=== PATIENT | female | born 1945 | race Caucasian/White ===

== ENCOUNTER 2023-07-24 14:04 | Observation (INO) ==
--- NOTE | 2023-07-24 14:29 | History & Physical Report ---
Date of Service July 24, 2023 Assessment & Plan (1) Acute UTI: Plan: Ceftriaxone (due to current nausea) pending urine/blood culture Some of her suprapubic pain maybe cystitis and will start Pyridium to see if this is effective (2) Constipation: Plan: Already appears to be improving after starting Golytely MiraLAX 17g PO daily until no longer having hard stool Suspect this is the majority of her pain (3) Hypertension: Plan: Continue her usual losartan and amlodipine (4) Hyperlipidemia: Plan: Continue rosuvastatin (5) Hypothyroidism: Plan: Add TSH Continue levothyroxine (6) GERD (gastroesophageal reflux disease): Plan: Pantoprazole IV (unable to tolerate PO well with nausea) 40mg now then PO tomorrow Plan VTE Prophylaxis - Lovenox 40mg SQ daily Diet - clear liquids, advance as tolerated Disposition - observation to med/surg Admission and Anticipated Discharge Date Admission Date: July 24, 2023 History of Present Illness Chief Complaint: Abdominal pain Primary Care Provider: Rafaela Rico Jenna Nair is a 77-year-old female who presents back to the ER after discharge earlier today with intractable abdominal pain. Initial umbilicus and suprapubic abdominal pain started yesterday morning with associated urinary frequency and discomfort. Initially the pain was intermittent with intense cramping however starting last night it would not go away. She describes it as "like having a baby". She went to [facility] last night and was diagnosed with constipation and treated with magnesium citrate which caused more intense pain (severity 10/10) therefore she came to [facility] ER earlier today when she was diagnosed with fecal impaction in addition to UTI. She was treated with cefdinir and given Golytely prep to take at home. After taking the Golyteley her pain became so intense she decided to return to the ER on advice of her granddaughter (CRISTY Riveraen Makenna). Since arrival back to the ER she has had a bowel movement with hard stool and feels improvement with pain severity down to 4/10. No radiation of pain, no back pain or flank tenderness. Of note she was recently on a course of prednisone for back pain which correlates with T12 fracture on CT but is no longer having a problem with this. Home Medications Medication Instructions Recorded Confirmed Type amlodipine 2.5 mg tablet 2.5 mg PO QAM 07/24/23 07/24/23 History cefdinir 300 mg capsule 300 mg PO BID 5 days #10 caps 07/24/23 07/24/23 Rx citalopram 20 mg tablet 20 mg PO QAM 07/24/23 07/24/23 History levothyroxine 100 mcg tablet 100 mcg PO DAILYBB 07/24/23 07/24/23 History losartan 100 mg tablet 100 mg PO QAM 07/24/23 07/24/23 History omeprazole 40 mg capsule,delayed 40 mg PO QAM 07/24/23 07/24/23 History release rosuvastatin 5 mg tablet 5 mg PO HS 07/24/23 07/24/23 History tobramycin 0.3 %-dexamethasone 2 drp OPL BID 07/24/23 07/24/23 History 0.05 % eye drops,suspension (Tobradex ST) Past Med/Surg History Medical History (Updated 07/24/23 @ 14:54 by Amanuel Trinh MD) GERD (gastroesophageal reflux disease) History of thyroid cancer Hypothyroidism Hyperlipidemia Hypertension Surgical History (Updated 07/24/23 @ 14:54 by Amanuel Trinh MD) History of thyroidectomy Social History Smoking Status: Never smoker Preferred Language: German Feels Safe at Home: Yes Review of Systems Review of Systems: All systems reviewed & are unremarkable except as noted in HPI & below Physical Exam Constitutional: WD/WN, vitals as above Respiratory: normal respiratory effort, lungs clear to auscultation Cardiovascular: RRR, no murmur, no edema Gastrointestinal (Abdomen): Inspection/Auscultation: abdomen normal to inspection; abdomen not distended Percussion/Palpation: + abdomen tender (suprapubic) and abdomen soft; no guarding and abdomen not rigid Skin: no rashes, warm and dry Neurologic: moves all extremities and awake; not confused Psychiatric: A+Ox3, euthymic affect Genitourinary: no CVA tenderness Results & Data Results & Data Vital Signs (Past 12 Hours) Vital Signs Temp Pulse Resp BP Pulse Ox O2 Del Method 07/24/23 14:17 36.7 C 84 16 163/86 H 94 Room Air Diagnostic Findings CT SCAN OF THE ABDOMEN AND PELVIS WITH IV CONTRAST CLINICAL HISTORY: Generalized abdominal pain. COMPARISON STUDY: No priors. TECHNIQUE: Following the IV administration of 90 cc of Optiray 320, CT scan of the abdomen and pelvis is performed from the lung bases to the proximal femora. Images are reviewed in the axial, sagittal, and coronal planes. IV contrast was administered without complication. A dose lowering technique was utilized adhering to the principles of ALARA. CT DOSE: 1317.15 mGy.cm FINDINGS: Lung bases: The heart is enlarged and without pericardial effusion. There are scattered coronary artery calcifications. The lung bases are clear noting bibasilar scarring/atelectasis. A small hiatal hernia is noted. Liver: The contrast-enhanced liver is normal in size, contour, and attenuation. There is mild central intrahepatic biliary ductal dilatation. The hepatic veins and portal veins are patent. Gallbladder: Surgically absent noting clips in the gallbladder fossa. Spleen: Normal in size and attenuation. Pancreas: Unremarkable. Adrenal glands: Unremarkable. Kidneys: The contrast enhanced kidneys are normal in size and without hydronephrosis. The kidneys enhance symmetrically. Abdominal vasculature: The abdominal aorta is normal in course and caliber noting moderate atherosclerotic calcification. Bowel: There is moderate colonic fecal retention. Liquid stool is seen throughout the right colon. There is mild colonic wall thickening, greatest involving the descending colon and rectosigmoid with surrounding infiltration and trace fluid. The appearance is consistent with a nonspecific colitis. No bowel obstruction is seen. The appendix is not identified and reported surgically absent. Peritoneum: There is trace free fluid in the lower abdomen and pelvis. No intravaginal sac is identified. Lymphadenopathy: None. Pelvic viscera: The bladder is normal as visualized. The uterus is surgically absent. No adnexal lesion is seen. Skeletal structures: The skeletal structures are osteopenic. There is mild lumbosacral spondylosis. There is a an acute to subacute appearing superior end plate compression fracture of T11. There is only mild loss of height. No retropulsed fragments are seen. Paravertebral edema is noted. No lytic or blastic lesions are seen. IMPRESSION: 1. Acute to subacute superior endplate compression fracture of T11 with mild paravertebral edema. There is only mild loss of height. No significant retropulsion of fragments is seen. 2. There is evidence of a nonspecific colitis as above, with liquid stool throughout the right colon and significant fecal retention in the left colon. Correlate clinically. 3. Trace ascites. 4. Cardiomegaly. 5. Additional findings as above. ECG Rate (beats per minute): 65 Rhythm: normal sinus Findings: no acute ischemic change Comparison ECG Date: no prior available Code Status & VTE Plan Code Status Full PG Care Time/CCT Total # of Minutes Spent Total Time Spent with Patient: Total time spent is greater than 50% in coordination of care (as documented) at patient's floor/unit and/or counseling patient: Coding Level of Care Code 15837 INT INP/OBS CARE 2/55MIN Diagnoses Acute UTI N39.0 Constipation K59.00 Hypertension I10 Hyperlipidemia E78.5 Hypothyroidism E03.9 GERD (gastroesophageal reflux disease) K21.9
--- NOTE | 2023-07-24 14:32 | Emergency Department Note ---
Impression & Plan Abdominal pain ADMIT ED Provider Note HPI: History obtained from patient The patient is a 77-year-old female who was seen earlier this morning by myself for constipation and abdominal pain, return to the emergency department after attempting to use GoLytely at home to have a bowel movement only resulting in worsening abdominal pain and vomiting. On arrival here to the ED the patient is hemodynamically stable, she otherwise appears to be in no acute distress. ROS: - Per HPI Differential Diagnosis: Acute constipation with intractable abdominal pain, viral gastroenteritis, urinary tract infection, pyelonephritis, acute cholecystitis, acute appendicitis, small bowel obstruction, amongst other potential pathologies. *Outpatient medications and allergy history reviewed. PE: General: Alert HEENT: Normocephalic, trachea midline Eyes: Extraocular eye movement is intact, no scleral erythema Pulmonary: Clear to auscultation bilaterally, no wheezing Cardio: Regular rate and rhythm GI: Abdomen is soft to palpation, mild distention : No suprapubic tenderness MSK: No evidence of trauma or malformation of the extremities, no edema, no palpable tenderness over the midline thoracic spine or lumbar spine Skin: No evidence of rash Neuro: Alert, no focal deficits Psychiatric: Cooperative INDEPENDENT INTERPRETATIONS: employment training specialist: (As interpreted by myself): - An order was placed for continuous cardiac monitoring - Patient was noted to be in sinus rhythm with a rate of 85 Medical Decision Making: IV will be established, blood cultures drawn given that the patient has leukocytosis and urinary tract infection. I discussed the patient's presentation with the on-call hospitalist, Dr. Trinh, and previous imaging and lab work were reviewed from earlier this morning. Patient stated her preference for admission to the hospital at this time given her recurrent symptoms. Blood cultures were ordered, patient was placed for admission in stable condition for further care to the service of Dr. Trinh. Consultants/Discussions held with other healthcare providers: -Hospitalist, Dr. Trinh Disposition discussion held by myself with: -Patient and at bedside Diagnosis: 1. Abdominal pain, acute, intractable 2. Nausea and vomiting, acute Disposition: Admission Benton Diez DO Emergency Medicine Past Med/Surg History Social History Smoking Status: Never smoker Preferred Language: Kenyan Feels Safe at Home: Yes Home Meds Previous Rx's Medication Instructions Recorded cefdinir 300 mg capsule 300 mg PO BID 5 days #10 caps 07/24/23 Results & Data (ED) Vital Signs Vital Signs - 24 hr 07/24/23 14:17 Temperature 36.7 C Temperature Source Temporal Artery Scan Pulse Rate 84 Respiratory Rate 16 Respiratory Effort / Characteristics Non-Labored Spontaneous Respiratory Depth Normal Respiratory Pattern Regular Blood Pressure 163/86 H Blood Pressure Mean 111 Pulse Oximetry 94 Oxygen Delivery Method Room Air Sepsis Recent Fever Within 48 Hours No Sepsis New/Unexplained Change in Mental Status N/A Sepsis Action Taken by Nursing No Action Required Discharge Plan Visit Data Chief Complaint: Abdominal Pain Stated Complaint: ABDOMINAL PAIN, REFERRED BY MD ED Provider: Benton Diez Discharge Problem: Abdominal pain Forms Stand Alone Forms: [facility] Prescriptions Prescriptions: No Action cefdinir 300 mg capsule 300 mg PO BID 5 Days Qty: 10 0RF Referrals Referrals: Rafaela Rico M.D. [Primary Care Provider] - Discharge Problem: Abdominal pain Qualifiers: Abdominal location: generalized Qualified Code(s): R10.84 - Generalized abdominal pain
[2023-07-24] MEDS: PHENAZOPYRIDINE HCL 200 MG TAB PO STA (15:30)
[2023-07-24] MEDS: ONDANSETRON INJ 2 MG/ML 2 ML VIAL IV STA (15:30)
[2023-07-24] MEDS: ACETAMINOPHEN 1,000 MG/100 ML VIAL IV STA (15:30)
[2023-07-24] MEDS: PANTOprazole 40 MG in SYRINGE 0 ML IV STA (15:30)
[2023-07-24] MEDS: cefTRIAXone SODIUM 2,000 MG in DEXTROSE 5 % MINI-B 50 ML IV ONE (15:31)
[2023-07-24] MEDS: POLYETHYLENE (MIRALAX) 17 GM PACK PO SCH (18:06)
[2023-07-24] MEDS: ROSUVASTATIN CALCIUM 5 MG TAB PO SCH (20:17)
[2023-07-24] MEDS ORDERED: PHENAZOPYRIDINE HCL 200 MG TAB PO PRN (22:01)
[2023-07-24] MEDS ORDERED: ACETAMINOPHEN 325 MG TAB PO PRN (22:01)
[2023-07-24] MEDS ORDERED: ONDANSETRON INJ 2 MG/ML 2 ML VIAL IV PRN (22:02)
[2023-07-25] MEDS: LEVOTHYROXINE SODIUM 100 MCG TABLET PO SCH (05:53)
[2023-07-25] MEDS: LOSARTAN POTASSIUM 50 MG TAB PO SCH (08:09)
[2023-07-25] MEDS: amLODIPine BESYLATE 5 MG TAB PO SCH (08:09)
[2023-07-25] MEDS: PANTOprazole 40 MG TAB PO SCH (08:10)
[2023-07-25] MEDS: CITALOPRAM 20 MG TAB PO SCH (08:10)
--- NOTE | 2023-07-25 08:36 | Hospitalist Progress Note ---
Date of Service July 25, 2023 Assessment & Plan (1) Acute UTI: Plan: Ceftriaxone (due to current nausea) pending urine/blood culture Some of her suprapubic pain maybe cystitis and will start Pyridium to see if this is effective Ceftriaxone IV continued Blood cultures pending Urine cx w/ gram negative bacilli on preliminary, >100k CFU. WBC normalized, afebrile Tolerating advancement of diet to full liquid diet for this afternoon and can continue to advance as tolerated Antiemetics as needed See below regarding constipation New meds: appears has new rx in system sent for HCTZ-losartan combination 100mg- 12.5mg - see below, no longer on HCTZ and suspect had worsened her constipation/dehydration Monitor labs/exam on repeat, possible dc in AM if urine cx finalized and tolerating advancement of diet (2) Constipation: Plan: Was provided mag citrate by [facility], given golytley in ER Of note, patient reports she is supposed to be on miralax daily at baseline but is not always compliant with this prior c-scope ~7 yrs ago with [facility]OTOMAY[facility], Dr Michaels. ?benefit from f/u and discussion about linzess or other for IBS-C. TSH wnl on check CTAP AM 07/23 prior to dc from ER noting evidence of a nonspecific colitis as above, with liquid stool throughout the right colon and significant fecal retention in the left colon. Correlate clinically. ?viral/infectious, does have bugs going around but no definite sick contact Moving her bowels since, feeling better, tolerating advancement to full liquid diet Hyperactive BS on exam, checked KUB for completeness --> no obstruction or free air noted PCR/cdiff testing to be obtained as able with next BM, otherwise could continue daily miralax but will place on hold until obtained Recommend she have outpatient follow up with her prior GI provider for consideration further testing/repeat scope or possible start of medication for IBS-C, ?linzess Continue to monitor (3) Hypertension: Plan: Continue her usual losartan and amlodipine HCTZ not on home medication list but will need to inquire as did have recent rx, ?contributed to worsened constipation Patient reports she had been on this for about a month but without improvement in BP and was stopped. Suspect contributing to worsened constipation as no hx CHF/LE edema. Was switched to amlodipine 2.5mg for BP control and discussed can increase to 5mg as needed Also, did note cardiomegaly on CXR and CTAP does note coronary artery calcifications. No prior cardiac hx but likely would benefit from f/u outpatient for eval. Is on rosuvastatin 5mg HS daily but no baby aspirin or hx TIA/CVA/ND in past. (4) Hyperlipidemia: Plan: Continue rosuvastatin, can f/u PCP for repeat labs pending last screening for risk stratification given calcifications as above to consider increasing her dose (5) Hypothyroidism: Plan: Hx thyroid ca, on Synthroid 100mcg daily TSH wnl on check and continues on home dosing (6) GERD (gastroesophageal reflux disease): Plan: Pantoprazole IV on admission due to inability to tolerate PO, remains on 40mg PO daily (on omeprazole outpatient, does have small hiatal hernia on imaging) Plan VTE Prophylaxis - Lovenox 40mg SQ daily while inpatient Updated granddaughter Heather Mensah (JASMINE, used to work with inpatient hospitalist group) via phone this afternoon per ok by patient Dispo:possible dc in AM on oral abx with outpatient follow up if tolerating advancement of diet and urine cx final/stool studies resulted Admission and Anticipated Discharge Date Admission Date: July 24, 2023 Supervising Physician Co-Signing Physician Notes The patient was not seen by me. The chart was reviewed. Case discussed with CRISTY Nguyen. Agree with assessment and plan Subjective Eval this morning around 11:30, sitting up in bed. Reports feeling better. Did take prednisone for her back but no pain medications. Reports she did have HCTZ added to BP regimen but remained high and didn't work much for her. Discussed not taking for LE edema or CHF and likely not best and dehydration worsened w/ diuretic therapy and would hold off. She notes chronic issues w/ constipation and seen by Josh Michaels, to be on miralax daily but is not as faithful with this. Believes eats enough fiber. Was constipated and then improvement since having BM but liquid BMs since. No sick contacts that she knows of with diarrheal illness but did note a lot of bugs going around. RN to check stool/cdiff next go. Reports had c-scope ~7 years ago. NO abnormality. Discussed could benefit from fiber but ensure enough fluids. Does have hyperactive BS, will monitor stool studies/cdiff. Consideration to increase her amlodipine as needed for BP but wouldn't go about 5 as 10 can sometimes worsen constipation. Discussed monitoring advancement of diet and urine cx to ensure no resistance. She did report she was given magnesium citrate by [facility]. Would avoid further. Granddaughter Heather, I know, and alerted patient that can message/reach out for discussion regarding plan or for any questions/concerns. Physical Exam Physical Exam: General: 77yo female, looks younger than stated age, sitting up in bed, NAD ( at bedside on recheck) HEENT: head atraumatic, normocephalic, mmm, trachea midline Resp: even/unlabored, no w/c/r, on room air CV: RRR, no significant m/r/g, no pitting edema/calf tenderness, pulses palpable GI: +BS throughout, hyperactive, +slight distension but soft, +suprapubic tenderness/cramping (reported improved from admission) MSK/Neuro: nonfocal, answering questions appropriately, not confused, no facial droop/slurred speech Psych: AOx3, cooperative and pleasant Results & Data Results & Data Vital Signs (Past 12 Hours) Vital Signs Temp Pulse Resp BP Pulse Ox O2 Del Method 07/25/23 06:58 36.7 C 65 16 164/78 H 95 Room Air Laboratory Results 07/25/23 07/24/23 07/24/23 Range/Units 08:45 15:34 14:35 WBC 10.44 (4.8-10.8) K/ul RBC 4.27 (4.20-5.40) M/uL Hgb 13.0 (12.0-16.0) g/dl Hct 38.8 (37.0-47.0) % MCV 90.9 (80.0-100.0) fL MCH 30.4 (25.0-34.0) pg MCHC 33.5 (32.0-36.0) g/dL RDW Std Deviation 43.5 (36.4-46.3) fL RDW Coeff of Eder 13.2 (11.5-14.5) % Plt Count 217 (130-400) K/uL MPV 9.8 (9.4-12.4) fL Immature Gran % (Auto) 0.5 % Neut % (Auto) 70.4 % Lymph % (Auto) 14.8 % [place] % (Auto) 9.3 % Eos % (Auto) 4.6 % Baso % (Auto) 0.4 % Neut # (Auto) 7.36 H (1.40-6.50) K/uL Lymph # (Auto) 1.54 (1.20-3.40) K/uL [place] # (Auto) 0.97 H (0.11-0.59) K/uL Eos # (Auto) 0.48 (0.00-0.50) K/uL Baso # (Auto) 0.04 (0.00-0.20) K/uL Immature Gran # (Auto) 0.05 (0.01-0.20) K/uL Sodium 136 (136-145) mmol/L Potassium 3.8 (3.5-5.1) mmol/L Chloride 101 (98-107) mmol/L Carbon Dioxide 31 (21-32) mmol/L Anion Gap 4 (3-11) BUN 9 (6-23) mg/dl Creatinine 0.69 (0.6-1.2) mg/dl Est Cr Clr Drug Dosing 72.5 ml/min Est GFR ( Amer) 98.7 ml/min Est GFR (Non-Af Amer) 85.2 ml/min BUN/Creatinine Ratio 13.0 (10-20) Glucose 131 H (70-99(Fasting)) mg/dl Calcium 8.6 (8.6-10.3) mg/dl Magnesium 2.1 (1.7-2.4) mg/dl Total Bilirubin 0.8 (0.2-1.0) mg/dl AST 38 (13-39) U/L ALT 50 (7-52) U/L Alkaline Phosphatase 83 (34-104) U/L Total Protein 6.4 (6.0-8.3) gm/dl Albumin 3.9 (3.4-5.0) gm/dl Globulin 2.5 (2.5-4.0) gm/dl Albumin/Globulin Ratio 1.6 (0.9-2) 25-OH Vitamin D Total 36.6 (30-100) ng/ml Procalcitonin < 0.02 (0-0.5) ng/ml TSH 0.851 (0.300-4.500) uIu/ml Diagnostic Findings PRIOR TO ADMISSION 07/24/[address] SCAN OF THE ABDOMEN AND PELVIS WITH IV CONTRAST CLINICAL HISTORY: Generalized abdominal pain. COMPARISON STUDY: No priors. TECHNIQUE: Following the IV administration of 90 cc of Optiray 320, CT scan of the abdomen and pelvis is performed from the lung bases to the proximal femora. Images are reviewed in the axial, sagittal, and coronal planes. IV contrast was administered without complication. A dose lowering technique was utilized adhering to the principles of ALARA. CT DOSE: 1317.15 mGy.cm FINDINGS: Lung bases: The heart is enlarged and without pericardial effusion. There are scattered coronary artery calcifications. The lung bases are clear noting bibasilar scarring/atelectasis. A small hiatal hernia is noted. Liver: The contrast-enhanced liver is normal in size, contour, and attenuation. There is mild central intrahepatic biliary ductal dilatation. The hepatic veins and portal veins are patent. Gallbladder: Surgically absent noting clips in the gallbladder fossa. Spleen: Normal in size and attenuation. Pancreas: Unremarkable. Adrenal glands: Unremarkable. Kidneys: The contrast enhanced kidneys are normal in size and without hydronephrosis. The kidneys enhance symmetrically. Abdominal vasculature: The abdominal aorta is normal in course and caliber noting moderate atherosclerotic calcification. Bowel: There is moderate colonic fecal retention. Liquid stool is seen throughout the right colon. There is mild colonic wall thickening, greatest involving the descending colon and rectosigmoid with surrounding infiltration and trace fluid. The appearance is consistent with a nonspecific colitis. No bowel obstruction is seen. The appendix is not identified and reported surgically absent. Peritoneum: There is trace free fluid in the lower abdomen and pelvis. No intravaginal sac is identified. Lymphadenopathy: None. Pelvic viscera: The bladder is normal as visualized. The uterus is surgically absent. No adnexal lesion is seen. Skeletal structures: The skeletal structures are osteopenic. There is mild lumbosacral spondylosis. There is a an acute to subacute appearing superior end plate compression fracture of T11. There is only mild loss of height. No retropulsed fragments are seen. Paravertebral edema is noted. No lytic or blastic lesions are seen. IMPRESSION: 1. Acute to subacute superior endplate compression fracture of T11 with mild paravertebral edema. There is only mild loss of height. No significant retropulsion of fragments is seen. 2. There is evidence of a nonspecific colitis as above, with liquid stool throughout the right colon and significant fecal retention in the left colon. Correlate clinically. 3. Trace ascites. 4. Cardiomegaly. 5. Additional findings as above. ACT 112: Negative or not required by law. KUB X-Ray 07/25/23 11:52 KUB CLINICAL HISTORY: hyperactive BS COMPARISON STUDY: CT of the abdomen and pelvis July 24, 2023. FINDINGS: Cholecystectomy clips are incidentally noted. The bowel gas pattern is normal. The amount of stool is within normal limits. No urinary calculi are identified by radiography. Left pelvic calcifications represent phleboliths. IMPRESSION: No evidence for a bowel obstruction. ACT 112: Negative or not required by law. Electronically signed by: Tai Espinoza M.D. 07/25/2023 12:31 PM PG Care Time/CCT Total # of Minutes Spent Total Time Spent with Patient: Total time spent is greater than 50% in coordination of care (as documented) at patient's floor/unit and/or counseling patient: Coding Level of Care Code 79045 SUB INP/OBS CARE 3/50MIN Diagnoses Acute UTI N39.0 Constipation K59.00 Hypertension I10 Hyperlipidemia E78.5 Hypothyroidism E03.9 GERD (gastroesophageal reflux disease) K21.9
[2023-07-25 08:59] LABS: Basophils # (auto) 0.04 K/uL (0.00-0.20); Basophils % (auto) 0.4 %; Eosinophils # (auto) 0.48 K/uL (0.00-0.50); Eosinophils % (auto) 4.6 %; Hematocrit (blood only) 38.8 % (37.0-47.0); Immature Granulocytes # (auto) 0.05 K/uL (0.01-0.20); Immature Granulocytes % (auto) 0.5 %; Lymphocytes # (auto) 1.54 K/uL (1.20-3.40); Lymphocytes % (auto) 14.8 %; Mean Corpuscular Hemoglobin 30.4 pg (25.0-34.0); Mean Corpuscular Hgb Conc 33.5 g/dL (32.0-36.0); Mean Corpuscular Volume 90.9 fL (80.0-100.0); Mean Platelet Volume 9.8 fL (9.4-12.4); Monocytes # (auto) 0.97 K/uL (0.11-0.59); Monocytes % (auto) 9.3 %; Neutrophils # (auto) 7.36 K/uL (1.40-6.50); Neutrophils % (auto) 70.4 %; Platelet Count 217 K/uL (130-400); RDW Coefficient of Variation 13.2 % (11.5-14.5); RDW Standard Deviation 43.5 fL (36.4-46.3); Red Blood Count 4.27 M/uL (4.20-5.40); White Blood Count 10.44 K/ul (4.8-10.8)
[2023-07-25 09:16] LABS: Albumin Globulin Ratio 1.6 (0.9-2); Albumin Level 3.9 gm/dl (3.4-5.0); Bilirubin,Total 0.8 mg/dl (0.2-1.0); Calcium 8.6 mg/dl (8.6-10.3); Creatinine Clr Calc Pharmacy 72.5 ml/min; Est GFR (African American) 98.7 ml/min; Est GFR (Non-African American) 85.2 ml/min; Globulin 2.5 gm/dl (2.5-4.0); Magnesium 2.1 mg/dl (1.7-2.4); Potassium 3.8 mmol/L (3.5-5.1); Total Protein 6.4 gm/dl (6.0-8.3)
--- NOTE | 2023-07-25 12:32 | XRay Report ---
KUB CLINICAL HISTORY: hyperactive BS COMPARISON STUDY: CT of the abdomen and pelvis July 24, 2023. FINDINGS: Cholecystectomy clips are incidentally noted. The bowel gas pattern is normal. The amount o f stool is within normal limits. No urinary calculi are identified by radiography. Left pelvic calcif ications represent phleboliths. IMPRESSION: No evidence for a bowel obstruction. ACT 112: Negative or not required by law. Electronically signed by: Tai Espinoza M.D. 07/25/2023 12:31 PM
[2023-07-25 15:12] LABS: Adenovirus F 40/41 PCR Not Detected (NotDetected); Astrovirus PCR Not Detected (NotDetected); Campylobacter PCR Not Detected (NotDetected); Cryptosporidium PCR Not Detected (NotDetected); Cyclospora cayetanensis PCR Not Detected (NotDetected); Entamoeba histolytica PCR Not Detected (NotDetected); Enteroaggregative E.coli(EAEC) Not Detected (NotDetected); Enteropathogenic E.coli (EPEC) Not Detected (NotDetected); Enterotoxigenic E.coli (ETEC) Not Detected (NotDetected); Giardia lamblia PCR Not Detected (NotDetected); Norovirus GI/GII PCR Not Detected (NotDetected); Plesiomonas shigelloides PCR Not Detected (NotDetected); Rotavirus A PCR Not Detected (NotDetected); Salmonella PCR Not Detected (NotDetected); Sapovirus PCR Not Detected (NotDetected); Shiga-like Toxin E.coli (STEC) Not Detected (NotDetected); Shigella/Enteroinvasive E.coli Not Detected (NotDetected); Vibrio cholerae PCR Not Detected (NotDetected); Vibrio species PCR Not Detected (NotDetected); Yersinia enterocolitica PCR Not Detected (NotDetected)
[2023-07-25] MEDS: cefTRIAXone SODIUM 2,000 MG in DEXTROSE 5 % MINI-B 50 ML IV SCH (15:49)
--- NOTE | 2023-07-26 06:02 | Electrocardiogram Report ---
Test Reason : Blood Pressure : / mmHG Vent. Rate : 066 BPM Atrial Rate : 066 BPM P-R Int : 144 ms QRS Dur : 078 ms QT Int : 430 ms P-R-T Axes : 027 -27 -35 degrees QTc Int : 450 ms Normal sinus rhythm Minimal voltage criteria for LVH, may be normal variant Cannot rule out Anterior infarct , age undetermined Abnormal ECG When compared with ECG of 24-JUL-2023 08:50, (unconfirmed) No significant change was found Confirmed by Humza Persaud ([id number]) on 07/26/2023 6:01:33 AM Referred By: REFERRED SELF Confirmed By:Humza Persaud
[2023-07-26 06:33] LABS: Basophils # (auto) 0.04 K/uL (0.00-0.20); Basophils % (auto) 0.6 %; Eosinophils # (auto) 0.59 K/uL (0.00-0.50); Eosinophils % (auto) 8.1 %; Hematocrit (blood only) 37.4 % (37.0-47.0); Hemoglobin 12.6 g/dl (12.0-16.0); Immature Granulocytes # (auto) 0.02 K/uL (0.01-0.20); Immature Granulocytes % (auto) 0.3 %; Lymphocytes # (auto) 1.81 K/uL (1.20-3.40); Lymphocytes % (auto) 24.9 %; Mean Corpuscular Hemoglobin 30.6 pg (25.0-34.0); Mean Corpuscular Hgb Conc 33.7 g/dL (32.0-36.0); Mean Corpuscular Volume 90.8 fL (80.0-100.0); Mean Platelet Volume 10.1 fL (9.4-12.4); Monocytes # (auto) 0.78 K/uL (0.11-0.59); Monocytes % (auto) 10.7 %; Neutrophils # (auto) 4.03 K/uL (1.40-6.50); Neutrophils % (auto) 55.4 %; Platelet Count 213 K/uL (130-400); RDW Coefficient of Variation 12.8 % (11.5-14.5); Red Blood Count 4.12 M/uL (4.20-5.40); White Blood Count 7.27 K/ul (4.8-10.8)
[2023-07-26 07:11] LABS: Albumin Globulin Ratio 1.6 (0.9-2); Albumin Level 3.7 gm/dl (3.4-5.0); BUN Creatinine Ratio 15.5 (10-20); Bilirubin,Total 0.6 mg/dl (0.2-1.0); Calcium 8.7 mg/dl (8.6-10.3); Creatinine Clr Calc Pharmacy 70.4 ml/min; Est GFR (African American) 96.6 ml/min; Est GFR (Non-African American) 83.3 ml/min; Globulin 2.3 gm/dl (2.5-4.0); Magnesium 1.8 mg/dl (1.7-2.4); Potassium 3.7 mmol/L (3.5-5.1)
[2023-07-26 07:26] LABS: T4 Free Thyroxine 0.99 ng/dl (0.61-1.60)
[2023-07-26 07:49] LABS: Estimated Average Glucose 126 mg/dl
[2023-07-26] MEDS: ENOXAPARIN INJ 40 MG/0.4 ML SYR SQ SCH (07:59)
--- NOTE | 2023-07-26 08:42 | Discharge Summary ---
Date of Service July 26, 2023 Admission HPI Per Admitting Provider Jenna Nair is a 77-year-old female who presents back to the ER after discharge earlier today with intractable abdominal pain. Initial umbilicus and suprapubic abdominal pain started yesterday morning with associated urinary frequency and discomfort. Initially the pain was intermittent with intense cramping however starting last night it would not go away. She describes it as "like having a baby". She went to [facility] ER last night and was diagnosed with constipation and treated with magnesium citrate which caused more intense pain (severity 10/10) therefore she came to [facility] ER earlier today when she was diagno sed with fecal impaction in addition to UTI. She was treated with cefdinir and given Golytely prep to take at home. After taking the Golyteley her pain became so intense she decided to return to the ER on advice of her granddaughter (CRISTY Mensah). Since arrival back to the ER she has had a bowel movement with hard stool and feels improvement with pain severity down to 4/10. No radiation of pain, no back pain or flank tenderness. Of note she was recently on a course of prednisone for back pain which correlates with T12 fracture on CT but is no longer having a problem with this. Admission Exam Per Admitting Provider Constitutional: WD/WN, vitals as above Respiratory: normal respiratory effort, lungs clear to auscultation Cardiovascular: RRR, no murmur, no edema Gastrointestinal (Abdomen): Inspection/Auscultation: abdomen normal to inspection; abdomen not distended Percussion/Palpation: + abdomen tender (suprapubic) and abdomen soft; no guarding and abdomen not rigid Skin: no rashes, warm and dry Neurologic: moves all extremities and awake; not confused Psychiatric: A+Ox3, euthymic affect Genitourinary: no CVA tenderness Principal Diagnosis UTI, Constipation, nausea/vomiting Discharge Exam General: 77yo female, looks younger than stated age, sitting up in bed, NAD , ready to go home HEENT: head atraumatic, normocephalic, mmm, trachea midline Resp: even/unlabored, no w/c/r, on room air CV: RRR, no significant m/r/g, no pitting edema/calf tenderness, pulses palpable GI: +BS throughout, soft, less distension, no overt tenderness, no guarding/rigidity MSK/Neuro: nonfocal, answering questions appropriately, not confused, no facial droop/slurred speech +tenderness in region of her thoracic compression fracture Psych: AOx3, cooperative and pleasant Discharge Data Allergies Allergy/AdvReac Type Severity Reaction Status Date / Time Penicillins Allergy Rash Verified 07/24/23 17:24 Sulfa (Sulfonamide Allergy Rash Verified 07/24/23 17:24 Antibiotics) Ordered Studies KUB X-Ray 07/25/23 11:52 KUB CLINICAL HISTORY: hyperactive BS COMPARISON STUDY: CT of the abdomen and pelvis July 24, 2023. FINDINGS: Cholecystectomy clips are incidentally noted. The bowel gas pattern is normal. The amount of stool is within normal limits. No urinary calculi are identified by radiography. Left pelvic calcifications represent phleboliths. IMPRESSION: No evidence for a bowel obstruction. ACT 112: Negative or not required by law. Electronically signed by: Tai Espinoza M.D. 07/25/2023 12:31 PM Hospital Course (1) Acute UTI: 77yo female with PMHx significant for chronic constipation, hypothyroidism, HTN, HLD, pre-DM presented in setting of recent T12 compression fracture after being seen in [facility] and discharged for constipation with magnesium citrate with ongoing pain and presented to ER and discharged on Cefdnir and golytely before returning unable to tolerate oral intake with ongoing pain requiring admission. To be on miralax daily at baseline but not always compliant as reported by patient. Suspect pain w fracture worsened constipation and likely contributed to her developing UTI. Also had recent rx for HCTZ but without prior hx CHF or LE swelling and reported did NOT help her blood pressure. Blood cultures obtained and placed on IV ceftriaxone for urinary coverage. Urine culture finalized w/ ecoli, pansensitive. Improvement in sx w/ IV abx and discharged to complete prior rx cefdinir. Tolerated advancement of diet and moving bowels as below -- see plan regarding constipation. WBC normalized, remained afebrile Monitor labs/exam on repeat, possible dc in AM if urine cx finalized and tolerating advancement of diet Re thoracic compression fracture, rec to utilize OTC lidocaine patch/heat. No excessive lifting/bending. Declined orthotics consult for brace. Vit D wnl. ?DEXA w/ PCP, consider bisphosphonates therapy (2) Constipation: Was provided mag citrate by [facility], given golytley in ER Of note, patient reports she is supposed to be on miralax daily at baseline but is not always compliant with this - prior c-scope ~7 yrs ago with [facility], Dr Michaels. ?benefit from f/u and discussion about linzess or other for IBS-C. TSH wnl on check CTAP AM 07/23 prior to dc from ER noting evidence of a nonspecific colitis as above, with liquid stool throughout the right colon and significant fecal retention in the left colon. Correlate clinically. Hyperactive BS on exam 07/24, KUB obtained which was negative for obstruction/free air. Suspect increased BS from prior mag citrate/golytely Stool biofire NEGATIVE, negative cdiff Discussed with patient and recommended continuing miralax daily for stimulant, colace to help soften but also to follow up discussions w/ Dr Michaels about consideration for Linzess vs mogerity for IBS-C type as appears. Also consideration increase fiber but can discuss w/ GI in follow up. (3) Hypertension: Slightly elevated in setting of pain however did have recent rx HCTZ by PCP which did NOT help per patien and suspect worsened dehydration/constipation as above Would avoid diuretics in f/u PCP given chronic constipation issues Continued losartan, amlodipine however INCREASED her amlodipine to 5mg daily for better BP control and to monitor at home. EKG did note LVH. NO CP or cardiac hx. Did note coronary artery calcifications on imaging in system and is on crestor 5mg (suspect for protection given her pre-DM, A1c 6.0 on check, unable to dwayne metformin prior given rx in system) Rec f/u discussions with PCP about outpt cardiology referral or stress testing in f/u. not on aspirin at baseline, no hx VA/CVA. Trop neg on ER visit AM 07/23 Further titrations for BP meds as needed outpatient based on repeat readings (4) Hyperlipidemia: Continued rosuvastatin, can f/u PCP for repeat labs pending last screening for risk stratification given calcifications as above to consider increasing her dose if needed given calcifications as above (5) Hypothyroidism: Hx thyroid ca, on Synthroid 100mcg daily TSH wnl on check and continued on home dosing (6) GERD (gastroesophageal reflux disease): Pantoprazole IV on admission due to inability to tolerate PO but continued PO daily thereafter. Does have small hiatal hernia on imaging Continue home omeprazole at mt. Cdiff testing negative on check given CTAP appearance/abdominal discomfort however likely from her constipation. LFTs wnl F/u [facility] recommended as above Plan VTE Prophylaxis - Lovenox 40mg SQ daily while inpatient Discharged home in stable condition and tolerating regular diet. To complete course PO abx for UTI and continue bowel regimen/GI outpatient follow up Total Time Total Time Spent Total Time Spent (In Minutes): 60 Discharge Plan Discharge Items Patient Disposition: Home - Self-Care Reason For Visit: UTI, INTRACTABLE ABDOMINAL PAIN Discharge Diagnosis: Urinary Tract Infection, Constipation, Nausea Goals: You have been hospitalized for an acute medical problem. During your stay at [facility], we have made an effort to correct the problem that brought you to the hospital while keeping you as comfortable as possible. Medications were used to bring your condition under control and your discharge instructions will include directions for any medications you should take after leaving the hospital. Please make sure you see your Primary Care Provider as part of your follow up plan. Activity: Resume your previous activity Non-emergency contact: Primary Care Provider and Family Centered Specialist Call non-emergency contact if: you have any medication questions, your symptoms worsen, your pain is concerning for you and you have a fever Follow-up/Referrals: Manpreet Michaels MD [Outside Practitioners] - Rafaela Rico M.D. [Primary Care Provider] - 07/28/23 12:30 pm Diet: Heart Healthy Addtl Attending Provider Instructions: You have been hospitalized for constipation as well as abdominal pain and urinary tract infection. You were treated with IV antibiotics (Ceftriaxone) and urine culture showed ecoli which was pansensitive (no resistance) and you can complete the course of cefdinir as prescribed in the ER. Your white count has returned to normal and you have remained without a fever. Your blood cultures have been negative to date. Please continue to stay well hydrated and continue miralax daily in the meantime as well as consideration for fiber/metamucil to help bulk stools however I would like you to have follow up with your previous gastroenterology provider to discuss consideration for repeat colonoscopy and/or consideration for Linzess as I suspect you may have irritable bowel/constipation type and may benefit from trial of this medication. Your stool studies were negative on biofire testing as well as for cdiff and this may be again related to constipation. Please continue to stay hydrated as well to prevent constipation. You can continue COLACE as discussed to help keep your stools soft and prevent hardening/worsened constipation. You did have some coronary artery calcifications noted on your cat scan imaging and although you do not have a cardiac history, it may be worthwhile to discuss with your primary care about referral to cardiology as an outpatient to consider possible stress testing. Your troponin was not elevated on arrival to the ER or reports of chest pain, however you do have a slightly enlarged heart on chest xray and this may be worth further discussion/evaluation. EKG did show some findings that are likely from longstanding blood pressure elevations and I would recommend you continue to monitor your pressures at home and if remaining elevated, and we have increased your amlodipine to 5mg daily. Your A1c was 6.0 and pre-diabetic, please follow up with primary care. I doubt you have gastroparesis but can have slowed GI time with diabetes and this can be discussed in follow up as well. Your thyroid level was normal, as checked due to issues with constipation if undertreated. For your back, I suspect the fracture/pain contributed to your constipation. Vitamin D level was normal. I would recommend discussing with primary care about a brace for comfort but can use lidocaine patch/heat in the meantime for pain as needed. Avoid excessive bending/lifting over 10 pounds in the meantime. If you have ongoing pain you may benefit from referral to orthopedic spine. Please follow up with primary care in the next 7-10 days to monitor your progress. Please return to the ER with any fever/chills, increased abdominal pain, nausea/vomiting/inability to tolerate oral intake/keep up with hydration, chest pain/shortness of breath or for any other symptoms concerning for you. It has been a pleasure being a part of the medical team providing for you while you have been in the hospital. Take care! Pending Studies at Discharge: Yes Studies:: Blood cultures -- no growth to date Stand-Alone Forms: My [employer], Smoking Cessation Medications and DC Order Prescriptions: New amlodipine [Norvasc] 5 mg Tablet 5 mg PO QAM Qty: 30 0RF Continued cefdinir 300 mg capsule 300 mg PO BID 5 Days Qty: 10 0RF omeprazole 40 mg capsule,delayed release(DR/EC) 40 mg PO QAM levothyroxine 100 mcg tablet 100 mcg PO DAILYBB citalopram 20 mg tablet 20 mg PO QAM losartan 100 mg tablet 100 mg PO QAM rosuvastatin 5 mg tablet 5 mg PO HS Tob[address]x ST 0.3-0.05 % drops,suspension 2 drp OPL BID Rx Instructions: Has 8 days left of regimen. Discontinued amlodipine 2.5 mg tablet 2.5 mg PO QAM Discharge Orders: Discharge Order (Routine); Ordered 07/26/23 Ordered By: Ann Whitfield/Other Patient Handouts: Prediabetes, 5 Steps for Eating Healthier Admission Data Admit Date/Time: 07/24/23 14:29 Attending Provider: Rita Villalba Admit Provider: Amanuel Trinh Primary Care Provider: Rafaela Rico Other Interventions: Discharge Summary Assessment (RN) Last Done: 07/26/23 10:05 Coding Level of Care Code 58688 INP/OBS DISCH >30 MIN Diagnoses Acute UTI N39.0 Constipation K59.00 Hypertension I10 Hyperlipidemia E78.5 Hypothyroidism E03.9 GERD (gastroesophageal reflux disease) K21.9
[2023-07-26] MEDS: POLYETHYLENE (MIRALAX) 17 GM PACK PO SCH (09:36)
[2023-07-26] MEDS: amLODIPine BESYLATE 5 MG TAB PO SCH (09:36)
[2023-07-26] MEDS: DOCUSATE SODIUM 100 MG CAP PO ONE (09:36)
--- NOTE | 2023-09-15 09:23 | Coding Query ---
This was ordered by Ann Palacio, not ordered by myself TREATMENT RENDERED WITHOUT A DIAGNOSIS To promote full compliance with coding requirements relating to patient care, physician participation is requested in all cases of visual merchandising specialist uncertainty. Please assist us with the question(s) below: CAN YOU GIVE ME A DIAGNOSIS FOR THE FOLLOWING TEST-GASTROINTESTINAL PATHOGEN INCLUDES MULTIPLEX REVERSE LAND SURVEYING SURVEY WORKER WHEN PERFORMED, AND MULTIPLEX AMPLIFIED PROBE TECHNIQUE, MULTIPLE TYPES OR SUBTYPES, 12-25 TARGETS Coding Question: The patient is receiving (GASTROINTESTINAL PATHOGEN TESTING), as noted in the (ER DEPT) of the record. Please document the diagnosis that is being addressed by the medication/treatment. DIAGNOSIS: Provider Response: Thank you Sommre ORO
--- NOTE | 2023-09-27 09:58 | Coding Query ---
TREATMENT RENDERED WITHOUT A DIAGNOSIS To promote full compliance with coding requirements relating to patient care, physician participation is requested in all cases of worm farm laborer uncertainty. Please assist us with the question(s) below: Can you give me a diagnosis for the following testing: gastrointestinal pathogen includes multiplex reverse energy rater when performed multiplex amplified probe technique multiple types or subtypes 12-25 targets CTAP AM 07/23 prior to dc from ER noting evidence of a nonspecific colitis as above, with liquid stool throughout the right colon and significant fecal retention in the left colon. Testing was performed to rule out any other infectious etiology contributing to those symptoms Coding Question: The patient is receiving (gastrointestinal pathogen testing), as noted in the (ER DEPT) of the record. Please document the diagnosis that is being addressed by the medication/treatment. DIAGNOSIS: Provider Response: Thank you Sommer ORO
== END 2023-07-26 10:40 | disposition home or self-care (01) ==
LOC: 3W 14:04 → ED 14:04 → SUATTDRO 14:29 → 3W 16:53